=== PATIENT | female | born 1985 | race Hispanic/Latino ===

== ENCOUNTER 2024-06-25 10:45 | Emergency (ER) | payer SELFPAY ==
[~2024-06-25] VITALS: Ht 160 cm; Wt 104.0 kg
[~2024-06-25 10:45] MED LIST: HYDROCORTISO2.5 % TOP; [UNRECOGNIZED DRUG - CODE] EX
[2024-06-25 10:54] VITALS: BP 120/79
[2024-06-25] MEDS ORDERED: Diph, Acellular Pertussis, Tet 0.5 ML/VIAL (Tdap) SDV IM ONE (10:55)
[2024-06-25 11:01] VITALS: BP 128/69
[2024-06-25 11:31] VITALS: BP 127/81
[2024-06-25] MEDS ORDERED: BACTRIM DS1 TAB PO (11:55)
[2024-06-25] MEDS ORDERED: CEPHALEXIN500 M1 PO (11:55)
[2024-06-25 12:03] VITALS: BP 124/82
== END 2024-06-25 12:08 | disposition home or self-care (01) | DRG 603 ==
LOC: ED 10:45
DX: L03.114 Cellulitis of left upper limb (principal)

== ENCOUNTER 2024-07-20 11:48 | Emergency (ER) | payer SELFPAY ==
[~2024-07-20] VITALS: Ht 160 cm; Wt 108.0 kg
[~2024-07-20 11:48] MED LIST changes: +BACTRIM DS1 TAB PO; +CEPHALEXIN500 M1 PO
[2024-07-20 12:45] VITALS: BP 132/77
[2024-07-20] MEDS ORDERED: POVIDONE IODINE 0.5 OZ/BTL TOP STA (12:51)
[2024-07-20] MEDS ORDERED: LIDOcaine HCl 1% (Local Anesth.) 20 ML VIAL STI STA (12:51)
[2024-07-20 13:01] VITALS: BP 121/76
[2024-07-20 13:15] VITALS: BP 128/77
[2024-07-20 13:30] VITALS: BP 147/96
[2024-07-20] MEDS ORDERED: BACTRIM DS1 TAB PO (13:38)
[2024-07-20] MEDS ORDERED: LORTAB 5/3255 MG PO (13:38)
[2024-07-20 13:47] VITALS: BP 111/58
[2024-07-20 14:00] VITALS: BP 113/69
== END 2024-07-20 14:05 | disposition home or self-care (01) | DRG 603 ==
LOC: ED 11:48
PROC: 0H9BXZZ Drainage of Right Upper Arm Skin, External Approach (ICD-10-PCS; principal; 2024-07-20)
DX: L02.413 Cutaneous abscess of right upper limb (principal)

== ENCOUNTER 2024-07-22 09:12 | Emergency (ER) | payer OTHER ==
[~2024-07-22] VITALS: Ht 160 cm; Wt 104.0 kg
[~2024-07-22 09:12] MED LIST changes: +LORTAB 5/3255 MG PO
[2024-07-22 09:30] VITALS: BP 113/65
[2024-07-22 09:45] VITALS: BP 105/78
[2024-07-22 10:00] VITALS: BP 104/72
== END 2024-07-22 10:01 | disposition home or self-care (01) | DRG 951 ==
LOC: ED 09:12
DX: Z48.01 Encounter for change or removal of surgical wound dressing (principal)